=== PATIENT | female | born 1975 | race Caucasian/White ===

== ENCOUNTER 2017-01-31 01:14 | Emergency (ER) | payer OTHER ==
[~2017-01-31 01:14] MED LIST: ALBUTEROL17 GM; AMITRIPTYLINE H25 MG PO; BENZONATATE; DOXYCYCLINE HY100 M3; HYDROCODON-ACE1 EAC5 PO; PHENERGAN25 MG PO
[2017-01-31] MEDS ORDERED: LASIX20 MG PO (01:55)
== END 2017-01-31 02:23 | disposition home or self-care (01) ==
LOC: SED 01:14
DX: R60.0 Localized edema (principal); F17.200 Nicotine dependence, unspecified, uncomplicated; Z98.890 Other specified postprocedural states
CPT/HCPCS: 99282